=== PATIENT | female | born 1940 | race Caucasian/White ===

== ENCOUNTER → 2017-11-01 | Outpatient (CLI) | payer OTHER, BC ==
[~2017-11-01] MED LIST: CALCIUM500 M1 PO; ELIQUIS5 MG PO; FLECAINIDE ACE100 MG PO; METOPROLOL SUCC25 M1 PO; QUINU10 PD PO; TOPROL XL25 MG PO; VITAMINC500 PO
== END ==
LOC: RAD 00:16
DX: Z12.31 Encounter for screening mammogram for malignant neoplasm of breast (principal); M81.0 Age-related osteoporosis without current pathological fracture; M85.89 Other specified disorders of bone density and structure, multiple sites; Z78.0 Asymptomatic menopausal state

== ENCOUNTER → 2020-01-15 | Outpatient (CLI) | payer OTHER, BC | LOC: SJCVCIMAG 14:05 | PROVIDERS: ATTEND Internal Medicine Cardiovascular Disease | DX: Z45.018 Encounter for adjustment and management of other part of cardiac pacemaker (principal); I08.8 Other rheumatic multiple valve diseases; I49.5 Sick sinus syndrome; I10 Essential (primary) hypertension; I48.0 Paroxysmal atrial fibrillation; I48.3 Typical atrial flutter; Z79.899 Other long term (current) drug therapy; Z87.891 Personal history of nicotine dependence ==

== ENCOUNTER → 2020-07-13 | Outpatient (CLI) | payer OTHER, BC | LOC: SJCVC 12:48 | PROVIDERS: ATTEND Internal Medicine Cardiovascular Disease | DX: R94.31 Abnormal electrocardiogram [ECG] [EKG] (principal); I49.5 Sick sinus syndrome; I48.0 Paroxysmal atrial fibrillation; Z79.899 Other long term (current) drug therapy; Z87.891 Personal history of nicotine dependence ==

== ENCOUNTER → 2021-01-19 | Outpatient (CLI) | payer OTHER, BC | LOC: SJCVC 14:18 | PROVIDERS: ATTEND Internal Medicine Cardiovascular Disease | DX: I48.0 Paroxysmal atrial fibrillation (principal); I49.5 Sick sinus syndrome; I10 Essential (primary) hypertension; Z95.0 Presence of cardiac pacemaker; Z88.0 Allergy status to penicillin; Z88.8 Allergy status to other drugs, medicaments and biological substances; Z79.899 Other long term (current) drug therapy; Z87.891 Personal history of nicotine dependence; Z82.49 Family history of ischemic heart disease and other diseases of the circulatory system ==

== ENCOUNTER → 2021-02-08 | Outpatient (CLI) | payer OTHER, BC | LOC: CAT 08:31 | PROVIDERS: ATTEND Family Medicine | DX: K57.30 Diverticulosis of large intestine without perforation or abscess without bleeding (principal) ==

== ENCOUNTER → 2021-07-21 | Outpatient (CLI) | payer OTHER, BC | LOC: SJCVC 12:52 | PROVIDERS: ATTEND Internal Medicine Cardiovascular Disease | DX: R94.31 Abnormal electrocardiogram [ECG] [EKG] (principal); I49.5 Sick sinus syndrome; I48.3 Typical atrial flutter; I48.0 Paroxysmal atrial fibrillation; Z88.0 Allergy status to penicillin; Z88.8 Allergy status to other drugs, medicaments and biological substances; Z79.899 Other long term (current) drug therapy; Z87.891 Personal history of nicotine dependence; Z98.890 Other specified postprocedural states ==

== ENCOUNTER → 2021-08-10 | Outpatient (CLI) | payer OTHER, BC ==
[~2021-08-10] MED LIST changes: +C-10001000 MG PO; +CALCIUM 600 +1 EA11 PO; +FLECAINIDE ACET50 M2 PO; +LOPERAMIDE2 MG PO; +LORAZEPAM 0.50.5 MG PO; +PACERONE 200 M200 M1 PO; +ZOFRAN ODT4 MG PO
[2021-08-10 09:36] LABS: CREATININE 0.8 mg/dL (0.6-1.0)
== END ==
LOC: CAT 08:39
PROVIDERS: ATTEND Internal Medicine Cardiovascular Disease
DX: Z01.812 Encounter for preprocedural laboratory examination (principal); I48.91 Unspecified atrial fibrillation

== ENCOUNTER 2021-08-12 09:24 | Observation (INO) | payer OTHER, BC ==
[~2021-08-12] VITALS: Ht 170.2 cm; Wt 63.5 kg
[~2021-08-12 09:24] MED LIST changes: -C-10001000 MG PO; -CALCIUM 600 +1 EA11 PO; -FLECAINIDE ACET50 M2 PO; -LOPERAMIDE2 MG PO; -LORAZEPAM 0.50.5 MG PO; -PACERONE 200 M200 M1 PO; -ZOFRAN ODT4 MG PO
[2021-08-12 10:19] LABS: ABSOLUTE NEUTROPHILS 3.4 thou/uL (1.4-8.2); BASOPHILS 0.8 % (0.0-2.0); EOSINOPHILS 0.7 % (0.0-3.0); HEMATOCRIT 46.6 % (37.0-47.0); HEMOGLOBIN 15.6 gm/dL (12.0-15.0); LYMPHOCYTES 32.4 % (24.0-44.0); MCH 33.7 pg (26.0-34.0); MCHC 33.4 g/dL (28.0-37.0); MCV 100.8 fL (80.0-100.0); MONOCYTES 8.7 % (1.0-8.0); PLATELET COUNT 218 thou/uL (150-400); POLYS 57.4 % (36.0-66.0); RBC 4.63 mil/uL (4.20-5.00); RDW 13.2 % (10.5-14.5); WBC 5.9 thou/uL (4.0-11.0)
[2021-08-12 10:23] VITALS: BP 152/68
[2021-08-12] MEDS ORDERED: C-10001000 MG PO (10:33)
[2021-08-12] MEDS ORDERED: ELIQUIS5 MG PO (10:34)
[2021-08-12] MEDS ORDERED: CALCIUM 600 +1 EA11 PO (10:34)
[2021-08-12] MEDS ORDERED: FLECAINIDE ACET50 M2 PO (10:35)
[2021-08-12] MEDS ORDERED: LORAZEPAM 0.50.5 MG PO (10:36)
[2021-08-12] MEDS ORDERED: LOPERAMIDE2 MG PO (10:36)
[2021-08-12 10:37] LABS: ALBUMIN 4.5 g/dL (3.4-5.0); CALCIUM 9.7 mg/dL (8.5-10.1); CREATININE 0.7 mg/dL (0.6-1.0); POTASSIUM 5.2 mmol/L (3.5-5.1); TOTAL BILIRUBIN 1.7 mg/dL (0.2-1.0); TOTAL PROTEIN 8.4 g/dL (6.4-8.2)
[2021-08-12] MEDS ORDERED: ZOFRAN ODT4 MG PO (10:37)
[2021-08-12 10:38] LABS: APTT 26.8 Seconds (24.5-32.8); INR 0.98; PROTIME 10.7 Seconds (10.5-12.1)
[2021-08-12] MEDS ORDERED: PACERONE 200 M200 M1 PO (15:25)
[2021-08-12 16:32] VITALS: BP 154/87
--- NOTE | 2021-08-12 17:13 | NUR ---
PT ARRIVED TO UNIT AROUND 1630. POST OP VITALS STARTED. PATIENT STATED HER ONLY COMPLAINT WAS A SORE THROAT. SPOUSE AT BEDSIDE.
[2021-08-12 20:51] VITALS: BP 120/69
[2021-08-13 00:09] VITALS: BP 128/79
--- NOTE | 2021-08-13 03:40 | NUR ---
RECEIVED PATIENT AT 1900H.PATIENT IS ALERT AND ORIENTED X4.ON ROOM AIR BREATHING SPONTANEOUSLY.WITH RIGHT GROIN COVERED WITH DRESSING C/D/I.NOT IN PAIN OR DISTRESS.MEDS GIVEN PER OCT.ALL NEEDS ATTENDED.TO CONTINOUSLY MONITOR.
[2021-08-13 03:50] VITALS: BP 126/64
[2021-08-13 08:09] VITALS: BP 134/64
[2021-08-13 11:27] VITALS: BP 148/87
[2021-08-13 11:57] VITALS: BP 148/87
--- NOTE | 2021-08-13 12:47 | NUR ---
NO FALLS OR INNJURIES THIS SHIFT. VSS. PATIENT REMAINED A&OX4, RA, UP INDEPENDENT. DISCHARGE HOME TODAY WITH SPOUSE. DISCHARGE EDUCATION COMPLETED. TELE AND IV REMOVED. PATIENT WHEELED OUT BY STAFF. PATIENT PROGRESSED TOWARD POC.
[2021-08-13 12:50] VITALS: BP 148/87
--- NOTE | 2021-08-14 16:28 | D ---
[facility] [place] [address] DISCHARGE SUMMARY Name: AUGUST SPARKS Room #: 208-P [facility] Beto Eason#: [id number] Admission: 08/12/21 Attend Phys: Alcon Burgess MD Discharge: 08/13/21 Date of : 42 Report #: [id number] THIS REPORT FOR: cc: Dennys Winslow MD, Neal A. MD Lammoglia, Francisco J. MD ~ ADMISSION DIAGNOSIS: Paroxysmal symptomatic atrial fibrillation. DISCHARGE DIAGNOSIS: Symptomatic paroxysmal atrial fibrillation. PROCEDURES PERFORMED: 1. Atrial fibrillation ablation under general anesthesia. 2. Follow up Dr. Burgess in 3 months. DISCHARGE MEDICATIONS: Home meds, with the following changes: 1. Flecainide discontinued. 2. Amiodarone 200 mg daily. BRIEF CLINICAL HISTORY: See history and physical in chart. HOSPITAL COURSE: The patient was admitted to the hospital and underwent uncomplicated atrial fibrillation. Intraoperatively, the patient's aorta was close to the interatrial septum and concerns for possible complications with extension into the left atrial chamber was identified. In view of this, left atrial zhao were not performed, only in the right atrium. Rhythm was established. Subsequently, she was loaded with IV amiodarone, initiated on amiodarone for possible breakthrough. She is tolerating medications well. She is ambulating without any significant limitations. She has remained hemodynamically and electrically stable and is being discharged in stable and improved condition with the previously stated discharge medications and instructions. DISCHARGE ACTIVITY: No heavy lifting or straining for 48 hours, then ad jennifer. <ELECTRONICALLY SIGNED> By: Willy Mackenzie MD 08/14/21 1628 1021 1058 Willy Mackenzie MD /nt
--- NOTE | 2021-08-19 14:55 | P ---
[facility] [place] [address] PROCEDURE REPORT Name: AUGUST SPARKS Room #: 208-P [facility] Beto Eason#: [id number] Admission: 08/12/21 Attend Phys: Alcon Burgess MD Discharge: 08/13/21 Date of : 42 Report #: [id number] THIS REPORT FOR: cc: Dennys Winslow MD, Neal A. MD Couchonnal, Luis F. MD ~ PREOPERATIVE DIAGNOSES: 1. Atrial fibrillation. 2. Atrial flutter. POSTOPERATIVE DIAGNOSES: 1. Atrial fibrillation. 2. Atrial flutter. HISTORY: The patient is an 81-year-old female with history of atrial fibrillation, atrial flutter as well as sick sinus syndrome, status post [employer] dual-chamber pacemaker implantation. She is here for AFib ablation. PROCEDURES PERFORMED: 1. SVT ablation, CPT code 13572. 2. Left atrial pacing and recording, CPT code 56958. 3. Intracardiac echo, CPT code 51184. 4. 3D mapping, CPT code 87401. ANESTHESIA: The patient underwent general anesthesia with no anesthesia related complications. DESCRIPTION OF PROCEDURE: The patient underwent informed consent prior to the procedure. She was then brought to the EP laboratory in fasting and nonsedated state. She was prepped and draped in a standard fashion. I reprogrammed her pacemaker to the DDD 60 mode and turned off rate response. I then obtained access to the right femoral vein x 3, placing an 8, 9 and 7-Icelandic short sheath using the modified Seldinger technique. Next, under fluoroscopy, I placed a decapolar catheter into the coronary sinus for left atrial pacing and recording, an ICE catheter in the right atrium and as I was placing catheters up, the patient went from sinus rhythm into a cavotricuspid isthmus dependent flutter with an atrial cycle length of 360 milliseconds and an atrial activation that was proximal to distal along the CS. Immediately she became hemodynamically unstable in this rhythm and I performed a 200 joule synchronized cardioversion and this restored normal hemodynamics. Using intracardiac ultrasound, I verified there was no pericardial effusion. As such, I decided that we should start with the flutter ablation as this atrial flutter is unstable. Therefore, I placed a ramp sheath and an 8 mm ablation catheter into the right atrium. This was also somewhat challenging as her atrial lead had a lot of slack in it and I would often get entangled on the atrial lead during attempts of the [facility] [address] [place] [address] PROCEDURE REPORT Name: AUGUST SPARKS Room #: 208-P [facility].#: [id number] Admission: 08/12/21 Attend Phys: Alcon Burgess MD Discharge: 08/13/21 Date of : 42 Report #: [id number] ablation. Eventually, I was able to get under the lead. I performed atrial flutter ablation at 70 allen and 60 degrees. While performing this ablation, the patient went into a left sided atrial flutter with a cycle length of around 360 milliseconds in a distal to proximal activation consistent with like a mitral annular flutter. This one was more tolerable hemodynamically, but still her blood pressures were slightly soft with systolics of 100. Therefore, I went ahead and cardioverted this as well. She shortly thereafter went into atrial fibrillation, which was not an issue hemodynamically. I did have Anesthesia give her 150 of IV amiodarone over a course of 10 minutes. This did not convert the AFib and therefore, we performed another cardioversion. After conclusion of the atrial flutter ablation, I decided to try and go transseptal. She did have somewhat challenging anatomy and not great views on intracardiac ultrasound. I did systemically heparinized the patient and made 5 attempt to transseptal, but was never able to land in a location I felt safe crossing. As such, given the difficult anatomy and some hemodynamic issues when in atrial flutter, we decided to abort the AFib ablation portion of the procedure. Using intracardiac ultrasound, I verified there was no pericardial effusion. She then received systemic protamine and then catheters and sheaths were pulled. I reprogrammed her device back to its original settings DDDR 60-130 mode. There were no procedure related complications. CONCLUSIONS: 1. Successful atrial flutter ablation with bidirectional block. 2. Unsuccessful AFib ablation due to inability to perform a safe transseptal crossing. RECOMMENDATIONS: 1. Will be monitored in the CCU overnight. 2. We will stop the flecainide therapy and transition over to amiodarone 200 mg a day. 3. We will see in the EP clinic in 3 months. <ELECTRONICALLY SIGNED> By: Alcon Burgess MD 08/19/21 1455 1402 34 Alcon Burgess MD /nt
== END 2021-08-13 12:51 | disposition home or self-care (01) ==
LOC: CATH → 2N 13:51 → CATH 16:20 → 2N 16:20 → CATH 16:21 → 2N 08-13 12:51
PROVIDERS: ADMIT Internal Medicine Cardiovascular Disease; ATTEND Internal Medicine Cardiovascular Disease
DX: I48.0 Paroxysmal atrial fibrillation (principal); I49.5 Sick sinus syndrome; Z20.822 Contact with and (suspected) exposure to COVID-19; Z88.0 Allergy status to penicillin; Z88.8 Allergy status to other drugs, medicaments and biological substances; Z79.899 Other long term (current) drug therapy
CPT/HCPCS: 62110; 62900; 65020; 70005